=== PATIENT | female | born 1980 | race Caucasian/White ===

== ENCOUNTER 2018-05-12 12:00 | Outpatient (CLI) | payer SELFPAY ==
--- NOTE | 2018-05-12 13:45 | XRAY Report ---
Reason: ABD PX Procedure Date: 05/12/2018 Accession Number: [id number] / [id number] Procedure: WCP - Abdomen 1 View X-Ray CPT Code: 01315 FULL RESULT: EXAM: ABDOMEN RADIOGRAPHY EXAM DATE: 05/12/2018 12:08 PM. CLINICAL HISTORY: Stomach pain x 1 week. COMPARISON: None. TECHNIQUE: 1 view. FINDINGS: Bowel Gas Pattern: Within normal limits. No dilated loops. Other: Lung bases are clear. No free air. Soft tissues and osseous structures are grossly unremarkable. IMPRESSION: Normal 1-view abdomen x-ray. [facility]
== END 2018-05-12 12:01 | disposition home or self-care (01) ==
LOC: DI.WCP 12:00
PROVIDERS: ATTEND Family Medicine
DX: R10.9 Unspecified abdominal pain (principal)
CPT/HCPCS: 74018

== ENCOUNTER 2018-06-05 08:00 | Outpatient (CLI) | payer SELFPAY | END 2018-06-05 23:59 | disposition home or self-care (01) | LOC: LAB.R 08:00 | PROVIDERS: ATTEND Physician Assistant | DX: N39.0 Urinary tract infection, site not specified (principal) | CPT/HCPCS: 87086 ==

== ENCOUNTER 2019-02-05 12:21 | Outpatient (CLI) | payer OTHER ==
--- NOTE | 2019-02-05 13:41 | Ultrasound Report ---
Reason: MENOMETRORRHAGIA Procedure Date: 02/05/2019 Accession Number: [id number] / [id number] Procedure: US - Pelvic w/Transvaginal CPT Code: Final Report FULL RESULT: EXAM: PELVIC ULTRASOUND EXAM DATE: 02/05/2019 01:26 PM. CLINICAL HISTORY: MENOMETRORRHAGIA. LMP 01/02/2019 COMPARISON: None. TECHNIQUE: Realtime transabdominal pelvic scan performed to identify the uterus and adnexa and as an overview of other pelvic structures, followed by transvaginal scan to provide greater detail of the uterus and adnexa, with static image documentation. FINDINGS: Uterus: 10 x 4.5 x 6.6 cm, volume 158 cc. Anteverted position. Normal overall size and echotexture. Masses: Anterior 3 x 2.2 x 3 cm intramural fibroid Endometrium: 11.4 mm. Heterogeneous hypoechoic avascular 1.7 x 1.3 x 1.7 cm region Cervix: Small calcifications endocervical canal Right Ovary: 2.4 x 1.4 x 1.6 cm, volume 2.8 cc. Normal echotexture and blood flow. Left Ovary: 4.1 x 1.9 x 3.5 cm, volume 14 cc. Normal echotexture and blood flow. Free Fluid: None. Other: None. IMPRESSION: 1. Heterogeneous hypoechoic avascular endometrial density 1.7 x 1.3 x 1.7 cm. Differential includes hyperplasia, fibroid, mass. 2. 3 cm intramural fibroid [facility]
== END 2019-02-05 12:22 | disposition home or self-care (01) ==
LOC: DI 12:21
PROVIDERS: ATTEND Obstetrics & Gynecology
DX: N92.1 Excessive and frequent menstruation with irregular cycle (principal); D25.1 Intramural leiomyoma of uterus
CPT/HCPCS: 76830; 76856

== ENCOUNTER 2019-07-05 07:00 | Outpatient (CLI) | payer SELFPAY | END 2019-07-05 23:59 | disposition home or self-care (01) | LOC: LAB.R 07:00 | PROVIDERS: ATTEND Family Medicine | DX: N39.0 Urinary tract infection, site not specified (principal) | CPT/HCPCS: 87086 ==